=== PATIENT | male | born 1960 | race Caucasian/White ===

== ENCOUNTER 2018-05-11 09:50 | Emergency (ER) | payer BC ==
[2018-05-11 10:24] VITALS: BP 183/106
--- NOTE | 2018-05-11 10:42 | ED ---
Abdominal Pain/Male - HPI Summary HPI Summary: 57 yr old male with right side abdominal pain. Onset two days ago, and worse with laying on his side. No NVD, loss of appetite, fever, chills, urinary symptoms. He is concerned he could have appendicitis. - History of Current Complaint Chief Complaint: UCAbdominalPain Stated Complaint: RT SIDE ABD/FLANK PAIN *2DAYS Time Seen by Provider: 05/11/18 10:29 Pain Intensity: 2 - Allergies/Home Medications Allergies/Adverse Reactions: Allergies Allergy/AdvReac Type Severity Reaction Status Date / Time No Known Allergies Allergy Verified 05/11/18 10:27 Home Medications: Home Medications NK [No Home Medications Reported] 05/11/18 [History Confirmed 05/11/18] PMH/Surg Hx/FS Hx/Imm Hx - Surgical History Surgery Procedure, Year, and Place: c-spine Infectious Disease History: No Infectious Disease History: Denies: Traveled Outside the [place] in Last 30 Days - Family History Known Family History: Positive: None - Social History Occupation: Employed Full-time Lives: With Family Alcohol Use: None Substance Use Type: Reports: None Smoking Status (MU): Heavy Every Day Tobacco Smoker Type: Cigarettes Amount Used/How Often: 1 ppd Length of Time of Smoking/Using Tobacco: since age 55 Have You Smoked in the Last Year: Yes Review of Systems Constitutional: Negative Positive: Abdominal Pain. Negative: Vomiting, Diarrhea, Nausea Positive: other - negative for testicular pain. Negative: burning, dysuria, hematuria All Other Systems Reviewed And Are Negative: Yes Physical Exam Triage Information Reviewed: Yes Vital Signs On Initial Exam: Initial Vitals Temp Pulse Resp BP Pulse Ox 98.4 F 71 16 183/106 98 05/11/18 10:14 05/11/18 10:14 05/11/18 10:14 05/11/18 10:14 05/11/18 10:14 Vital Signs Reviewed: Yes Appearance: Positive: Well-Appearing, No Pain Distress Skin: Positive: Warm Head/Face: Positive: Normal Head/Face Inspection Eyes: Positive: EOMI ENT: Positive: Normal ENT inspection Neck: Positive: Nontender Respiratory/Lung Sounds: Positive: Clear to Auscultation, Breath Sounds Present Cardiovascular: Positive: RRR. Negative: Murmur Abdomen Description: Positive: Other: - He is tender in the right lower quadrant.. Negative: CVA Tenderness (R), CVA Tenderness (L), Distended Musculoskeletal: Positive: Strength/ROM Intact Neurological: Positive: Sensory/Motor Intact, Alert, Oriented to Person Place, Time, CN Intact II-III, Normal Gait, Speech Normal Psychiatric: Positive: Normal - Una Coma Scale Best Eye Response: 4 - Spontaneous Best Motor Response: 6 - Obeys Commands Best Verbal Response: 5 - Oriented Coma Scale Total: 15 Diagnostics - Vital Signs Vital Signs Temp Pulse Resp BP Pulse Ox 05/11/18 10:14 98.4 F 71 16 183/106 98 - Laboratory Lab Statement: Any lab studies that have been ordered have been reviewed, and results considered in the medical decision making process. Abdominal Pain Fem Course/Dx - Course Course Of Treatment: 57 yr old with right lower quadrant tenderness. He is going to [facility]. He did not want an ambulance and he feels he is fine to drive there. - Diagnoses Provider Diagnoses: Abdominal pain, Hypertension Discharge - Sign-Out/Discharge Documenting (check all that apply): Discharge/Admit/Transfer - Discharge Plan Condition: Good Disposition: [facility] Patient Education Materials: Abdominal Pain (ED), Hypertension (ED) Referrals: [facility] PHYSICIAN REFERRAL [Outside] No Primary Care Phys,NOPCP [Primary Care Provider] - Additional Instructions: [facility]: Emergency Room Emergency room in [place], [place] DirectionsWebsite Address: [address] [place] [address] [place] [address] you need to go to the hospital ER immediately upon leaving here for further evaluation of your abdominal pain which could be appendicitis. - Billing Disposition and Condition Condition: GOOD Disposition: Trans [facility] Care Fac
== END 2018-05-11 10:39 | disposition short-term general hospital (02) ==
LOC: UCCORT 09:50
DX: R10.31 Right lower quadrant pain (principal); I10 Essential (primary) hypertension; F17.210 Nicotine dependence, cigarettes, uncomplicated
CPT/HCPCS: 99201; G0463